=== PATIENT | female | born 1930 | race Caucasian/White ===

== ENCOUNTER 2017-02-16 15:32 | Emergency (ER) | payer OTHER ==
[2017-02-16 16:02] VITALS: BP 123/61; PULSE 77; TEMP 97; BMI 23.4
--- NOTE | 2017-02-16 17:31 | PDOC ---
History of Present Illness - General Chief Complaint: Injury Stated Complaint: FALL Time Seen by Provider: 02/16/17 17:25 History Source: Patient, Family - History of Present Illness Initial Comments: 02/16/17 17:57 86F with pmh of hyperthyroidism and Parkinson's present to the ED after fall from chair that induced a carpet burn and peeled her skin off. Didn't hit her head, no LOC. 02/16/17 18:32 Past History - Past Medical History Allergies/Adverse Reactions: Allergies Allergy/AdvReac Type Severity Reaction Status Date / Time No Known Allergies Allergy Verified 02/16/17 15:59 Home Medications: Ambulatory Orders Carbidopa/Levodopa [Sinemet Cr 50-200 Tablet] 1 each PO 5XD 05/14/11 Quetiapine Fumarate [Seroquel -] 100 mg PO HS 05/14/11 Multivitamins [Tab-A-Vit -] 1 tab PO DAILY 10/06/15 Bacitracin - [Bacitracin Topical Ointment -] 1 applic TP BID #7 applic 02/16/17 Anemia: Yes COPD: No Dementia: Yes (ALZHEIMERS; Parkinsons Dz.) - Surgical History Abdominal Surgery: Yes - Immunization History Immunization Up to Date: Yes - Suicide/Smoking/Psychosocial Hx Smoking Status: No Smoking History: Unknown if ever smoked Have you smoked in the past 12 months: No Number of Cigarettes Smoked Daily: 0 Information on smoking cessation initiated: No Hx Alcohol Use: No Drug/Substance Use Hx: No Substance Use Type: None Review of Systems - Review of Systems Constitutional: No: Symptoms Reported HEENTM: No: Symptoms Reported Respiratory: No: Symptoms reported Cardiac (ROS): No: Symptoms Reported ABD/GI: No: Symptoms Reported Integumentary: Yes: Other (skin torn) Neurological: Yes: Pre-Existing Deficit, Tremors *Physical Exam - Vital Signs Last Vital Signs Temp Pulse Resp BP Pulse Ox 97 F L 77 18 123/61 98 02/16/17 15:32 02/16/17 15:32 02/16/17 15:32 02/16/17 15:32 02/16/17 15:32 - Physical Exam General Appearance: Yes: Nourished, Thin HEENT: positive: EOMI, GAMALIEL Respiratory/Chest: positive: Lungs Clear, Normal Breath Sounds. negative: Chest Tender Cardiovascular: positive: Regular Rhythm, Regular Rate, S1, S2 Integumentary: positive: Other (right hand 5cm patch of skin avulsed, nonbleeding) Neurologic: positive: Other (parkinsonism tremors) Medical Decision Making - Medical Decision Making 02/16/17 19:09 PAtient wound closed with butterflies and kerlex. bacitracin script Ok to discharge *DC/Admit/Observation/Transfer Diagnosis at time of Disposition: Fall - Discharge Dispostion Disposition: HOME Admit: No - Prescriptions Prescriptions: Bacitracin - [Bacitracin Topical Ointment -] 1 applic TP BID #7 applic - Referrals Referrals: Vern Hogan MD [Primary Care Provider] - - Patient Instructions Printed Discharge Instructions: Dermabrasion Additional Instructions: Follow up with your primary care doctor within the next 2-3 days. Keep wound covered with bandage for couple days. Use bacitracin or neosporin on wound daily. Come back to the ER for any new, worsening or concerning symptoms. Print Language: MARTINIQUAIS - Post Discharge Activity
[2017-02-16] MEDS ORDERED: IBUPROFEN 600 MG TABLET (FP) PO ONE (17:57)
[2017-02-16] MEDS ORDERED: BACITRACIN 15 GM TUBE TOPICAL OINTMENT TP ONE (18:38)
--- NOTE | 2017-02-16 19:29 | PDOC ---
Attending Attestation - Resident Resident Name: Onesimo Blackman - ED Attending Attestation I have performed the following: I have examined & evaluated the patient, The case was reviewed & discussed with the resident, I agree w/resident's findings & plan, Exceptions are as noted - HPI HPI: 02/16/17 19:25 86 yo female w Parkinson's reached out from a seated position and slipped on the floor which was covered by a rug.She sustained a avulsed skin wound from her rt wrist head ncat neck no cervical vertebral tenderness lungs no crackles abd nontender ext no acute deformities neuro alert,moving all extremities - Physicial Exam PE: 02/16/17 19:29 Physical exam see above - Medical Decision Making 02/17/17 02:32 IMP avulsive wound/treated with sterri strips and bacitracin
== END 2017-02-16 19:10 | disposition home or self-care (01) ==
LOC: JER 15:32
PROC: 0HQFXZZ Repair Right Hand Skin, External Approach (ICD-10-PCS; principal; 2017-02-16)
DX: S61.411A Laceration without foreign body of right hand, initial encounter (principal); W07.XXXA Fall from chair, initial encounter; Y93.89 Activity, other specified; Y92.038 Other place in apartment as the place of occurrence of the external cause; G30.8 Other Alzheimer's disease; F02.80 Dementia in other diseases classified elsewhere, unspecified severity, without behavioral disturbance, psychotic disturbance, mood disturbance, and anxiety; G20 Parkinson's disease; E05.90 Thyrotoxicosis, unspecified without thyrotoxic crisis or storm
CPT/HCPCS: 12002; 99282-25

== ENCOUNTER 2017-09-05 17:21 | Observation (INO) | payer OTHER ==
--- NOTE | 2017-09-05 18:24 | PDOC ---
Attending Attestation - HPI HPI: The patient is a 87 year old female, with a significant PMH of Parkinson, dementia, and hypothyroid, who presents to the emergency department with an syncopal episode that occurred 1 hour ago upon arrival. The patients home health aide states patient was sitting on the couch when the syncopal episode occurred. Home health aide states attempts were made to wake patient, by calling her name and shaking her, but patient did not arouse for 3 minutes. The patients home health aid reports patient regain consciousness and returned to her baseline. Home health denies patient hitting her head or seizure activity. Denies chest pain, shortness of breath, headache and dizziness. Denies fever, chills, nausea, vomit, diarrhea and constipation. Denies dysuria, frequency, urgency and hematuria. Allergies: NKDA Past surgical history: Laminectomy and hysterectomy Social history: None reported PCP: Ventura Hogan Documentation prepared by Sarah Paige, acting as chief medical technologist for Bette Raygoza MD. - Physicial Exam PE: 09/05/17 21:08 GENERAL Petite stature. Well developed, well nourished. Awake and alert. No acute distress. HEENT: No head trauma. Normocephalic, atraumatic. PERRLA, EOMI. No conjunctival pallor. Sclera are non-icteric. Moist mucous membranes. Oropharynx is clear. NECK: Supple. Full ROM. No JVD. Carotid pulses 2+ and symmetric, without bruits. No thyromegaly. No lymphadenopathy. CARDIOVASCULAR: Regular rate and rhythm. No murmurs, rubs, or gallops. Distal pulses are 2+ and symmetric. PULMONARY: No evidence of respiratory distress. Lungs clear to auscultation bilaterally. No wheezing, rales or rhonchi. ABDOMINAL: Soft. Non-tender. Non-distended. No rebound or guarding. No organomegaly. Normoactive bowel sounds. MUSCULOSKELETAL Normal range of motion at all joints. No bony deformities or tenderness. No CVA tenderness. EXTREMITIES: No cyanosis. No clubbing. No edema. No calf tenderness. SKIN: Warm and dry. Normal capillary refill. No rashes. No jaundice. NEUROLOGICAL: +Alert, awake and moving appropriate but has lower chronic extremity weakness and needs assistance with walking due to parkinson . Cranial nerves 2-12 intact. No deficits to light touch and temperature in face, upper extremities and lower extremities. No motor deficits in the in face, upper extremities and lower extremities. Normoreflexic in the upper and lower extremities. Normal speech. Toes are down-going bilaterally. PSYCHIATRIC: Cooperative. Good eye contact. Appropriate mood and affect. <Sarah Paige - Last Filed: 09/05/17 21:07> - Resident Resident Name: Joi Villagomez - ED Attending Attestation I have performed the following: I have examined & evaluated the patient, The case was reviewed & discussed with the resident, I agree w/resident's findings & plan, Exceptions are as noted - Medical Decision Making 09/06/17 00:32 pt found to have UTI Diag : syncope,UTI admitted <Bette Raygoza - Last Filed: 09/06/17 00:33>
--- NOTE | 2017-09-05 18:29 | PDOC ---
History of Present Illness - History of Present Illness Initial Comments: 87yo F with PMH of Parkinson's Disease and hypothyroid presenting with syncopal episode about one hour prior to arrival. History was difficult to elicit due to patient's dementia. Patient was sitting on the couch when she suddenly syncopized, an incident witnessed by her home health aid. Attempts were made to arouse the patient, by calling her name and shaking her, but she was out for about three minutes. Patient immediately regained consciousness and returned to her baseline. Denies urinary or fecal incontinence during/after the episode, no tongue biting. Home health aid denies witnessing any seizure-like activity. Denies headache, blurry vision, shortness of breath, chest pain, n/v/d. 09/05/17 18:34 <Joi Villagomez - Last Filed: 09/05/17 18:42> <Bette Raygoza - Last Filed: 09/05/17 21:13> - General Chief Complaint: Syncope/Near Syncope Stated Complaint: LOST CONCIOUSNESS Time Seen by Provider: 09/05/17 18:05 Past History - Past Medical History Anemia: Yes COPD: No Dementia: Yes (ALZHEIMERS; Parkinsons Dz.) - Surgical History Abdominal Surgery: Yes - Immunization History Immunization Up to Date: Yes - Suicide/Smoking/Psychosocial Hx Smoking Status: No Smoking History: Unknown if ever smoked Have you smoked in the past 12 months: No Number of Cigarettes Smoked Daily: 0 Hx Alcohol Use: No Drug/Substance Use Hx: No Substance Use Type: None <Joi Villagomez - Last Filed: 09/05/17 18:42> <Bette Raygoza - Last Filed: 09/05/17 21:13> - Past Medical History Allergies/Adverse Reactions: Allergies Allergy/AdvReac Type Severity Reaction Status Date / Time No Known Allergies Allergy Verified 02/16/17 15:59 Home Medications: Ambulatory Orders Carbidopa/Levodopa [Sinemet Cr 50-200 Tablet] 1 each PO Q6H 05/14/11 Quetiapine Fumarate [Seroquel -] 100 mg PO HS 05/14/11 Multivitamins [Tab-A-Vit -] 1 tab PO DAILY 10/06/15 Review of Systems - Review of Systems Comments:: Constitutional: no fever, no chills HEENT: no throat pain, no hemoptysis Cardiovascular: no chest pain, no palpitations Respiratory: no cough, no shortness of breath Gastrointestinal: no abdominal pain, no nausea, no vomiting Genitourinary: no dysuria, no frequency Musculoskeletal: no myalgia, no arthralgia Skin: no rash, no itching Neurologic: no headache, no dizziness <Joi Villagomez - Last Filed: 09/05/17 18:42> *Physical Exam - Vital Signs Last Vital Signs Temp Pulse Resp BP Pulse Ox 97.8 F 66 20 134/69 100 09/05/17 17:35 09/05/17 17:35 09/05/17 17:35 09/05/17 17:35 09/05/17 17:35 - Physical Exam Comments: General: Awake, alert, and fully oriented, in no acute distress Head: no signs of trauma Eyes: PERRL, EOMI, sclera anicteric ENT: moist mucus membranes, Neck: Normal ROM, supple, no lymphadenopathy, JVD, or masses Lungs: Lungs clear, Normal breath sounds Cardio: Regular rhythm, S1 and S2 present, no murmurs, rubs, or gallops Abdomen: Soft, nontender, normal bowel sounds. No guarding, no rebound, no masses Extremities: Normal range of motion, Distal pulses present in all extremities SKIN: Warm, Dry, normal turgor, no rashes or lesions noted Neurologic: Generalized weakness, Cranial nerves II through XII grossly intact. Follows commands <Joi Villagomez - Last Filed: 09/05/17 18:42> - Vital Signs Last Vital Signs Temp Pulse Resp BP Pulse Ox 97.8 F 75 18 141/73 100 09/05/17 17:35 09/05/17 20:31 09/05/17 20:31 09/05/17 20:31 09/05/17 20:31 <Bette Raygoza - Last Filed: 09/05/17 21:13> ED Treatment Course - LABORATORY CBC & Chemistry Diagram: 09/05/17 18:41 09/05/17 18:41 - ADDITIONAL ORDERS Additional order review: Laboratory Results 09/05/17 09/05/17 09/05/17 20:09 18:52 18:41 PT with INR 11.90 INR 1.05 Sodium 143 Potassium 4.1 Chloride 107 Carbon Dioxide 28 Anion Gap 8 BUN 18 Creatinine 0.7 Creat Clearance w eGFR > 60 Random Glucose 127 H Calcium 8.9 Total Bilirubin 0.6 AST 14 L ALT 7 L Alkaline Phosphatase 62 Creatine Kinase 39 Troponin I < 0.02 Total Protein 6.9 Albumin 3.3 L TSH 0.86 Urine Color Yellow Urine Appearance Slcloudy Urine pH 6.0 Ur Specific [place] 1.017 Urine Protein Negative Urine Glucose (UA) Negative Urine Ketones Trace H Urine Blood 1+ H Urine Nitrite Positive Urine Bilirubin Negative Urine Urobilinogen Negative Ur Leukocyte Esterase 2+ H Urine WBC (Auto) 27 Urine RBC (Auto) 5 Urine Bacteria Rare Urine Mucus Rare 09/05/17 18:41 RBC 3.91 MCV 88.2 MCHC 33.4 RDW 13.3 MPV 7.5 Neutrophils % 62.3 D Lymphocytes % 25.7 D Monocytes % 8.8 Eosinophils % 2.6 Basophils % 0.6 <Bette Raygoza - Last Filed: 09/05/17 21:13> Medical Decision Making - Medical Decision Making 87yo patient with syncopal episode. Ordered EKG, portable CXR, CBC, CMP, TSH, Head CT w/o contrast. Patient is alert and oriented, in no acute distress. Follows commands. Syncope differential: Cardiac vs. Neurovascular vs. Electrolyte disturbance vs. Hypovolemia. <Joi Villagomez - Last Filed: 09/05/17 18:42> *DC/Admit/Observation/Transfer <Joi Villagomez - Last Filed: 09/05/17 18:42> - Discharge Dispostion Decision to Admit order: Yes <Bette Raygoza - Last Filed: 09/05/17 21:13> Diagnosis at time of Disposition: UTI (urinary tract infection) Qualifiers: Urinary tract infection type: site unspecified Hematuria presence: without hematuria Qualified Code(s): N39.0 - Urinary tract infection, site not specified Syncope Qualifiers: Syncope type: unspecified Qualified Code(s): R55 - Syncope and collapse - Referrals Referrals: Vern Hogan MD [Primary Care Provider] - - Patient Instructions - Post Discharge Activity
[2017-09-05 19:03] LABS: BASO % 0.6 % (0-2.0); EOS % 2.6 % (0-4.5); HEMATOCRIT 34.5 % (32.4-45.2); HEMOGLOBIN 11.5 GM/dL (10.7-15.3); LYMPH % 25.7 % (8-40); MCH 29.5 pg (25.7-33.7); MCHC 33.4 g/dl (32.0-36.0); MEAN CELL VOLUME 88.2 fl (80-96); MEAN PLT VOLUME 7.5 fl (7.5-11.1); MONO % 8.8 % (3.8-10.2); NEUT % 62.3 % (42.8-82.8); PLATELET COUNT 258 K/MM3 (134-434); RBC 3.91 M/mm3 (3.60-5.2); RDW 13.3 % (11.6-15.6); WHITE BLOOD COUNT 5.1 K/mm3 (4.0-10.0)
--- NOTE | 2017-09-05 19:12 | PDOC ---
*Physical Exam - Vital Signs Last Vital Signs Temp Pulse Resp BP Pulse Ox 97.8 F 66 20 134/69 100 09/05/17 17:35 09/05/17 17:35 09/05/17 17:35 09/05/17 17:35 09/05/17 17:35 ED Treatment Course - LABORATORY CBC & Chemistry Diagram: 09/05/17 18:41 09/05/17 18:41 - ADDITIONAL ORDERS Additional order review: 09/05/17 18:41 RBC 3.91 MCV 88.2 MCHC 33.4 RDW 13.3 MPV 7.5 Neutrophils % 62.3 D Lymphocytes % 25.7 D Monocytes % 8.8 Eosinophils % 2.6 Basophils % 0.6 Medical Decision Making - Medical Decision Making Signed out by Dr. Villagomez. Pt currently at CT scan. Blood glucose per EMS was 117. Awaiting lab work and CT results. ECG showed normal sinus rhythm. 09/05/17 19:08 CT scan negative for bleeds. UA showed UTI (positive leuk esterase and nitrites) , started 1g ceftriaxone, as well as home medications for PD (sinemet and seroquel). ECG and troponin negative, but we cannot find underlying reason for syncopal episode. Will be admitted for tele/obs to r/o any cardiac abnormalities. Internal Medicine resident at bedside with pt. Pt is sleeping comfortably. 09/05/17 22:15 Pt provided home medications to assist with sleep (sinemet and seroquel). Pt comfortable and awaiting bed upstairs. Discussed with IM internal medicine doctor. 09/05/17 23:11 *DC/Admit/Observation/Transfer Diagnosis at time of Disposition: UTI (urinary tract infection) Qualifiers: Urinary tract infection type: site unspecified Hematuria presence: without hematuria Qualified Code(s): N39.0 - Urinary tract infection, site not specified Syncope Qualifiers: Syncope type: unspecified Qualified Code(s): R55 - Syncope and collapse - Referrals - Patient Instructions - Post Discharge Activity
[2017-09-05 19:15] LABS: INR 1.05 (0.82-1.09); PROTHROMBIN TIME (PATIENT) 11.9 SEC (9.7-13.0)
[2017-09-05 19:25] LABS: ALBUMIN 3.3 g/dl (3.4-5.0); ANION GAP 8 (8-16); BILIRUBIN,TOTAL 0.6 mg/dL (0.2-1.0); CALCIUM 8.9 mg/dL (8.5-10.1); CHLORIDE 107 mmol/L (98-107); CO2 28 mmol/L (21-32); CREATININE 0.7 mg/dL (0.55-1.02); GLUCOSE,RANDOM 127 mg/dL (74-106); POTASSIUM 4.1 mmol/L (3.5-5.1); SGOT/AST 14 U/L (15-37); SGPT/ALT 7 U/L (12-78); SODIUM 143 mmol/L (136-145); TOT PROT 6.9 g/dl (6.4-8.2)
[2017-09-05 19:34] LABS: ALK PHOS 62 U/L (45-117); BLOOD UREA NITROGEN 18 mg/dL (7-18)
[2017-09-05 20:18] LABS: URINE APPEARANCE SLCLOUDY; URINE BILIRUBIN NEGATIVE (<2.0 mg/dL); URINE COLOR YELLOW; URINE GLUCOSE (UA) NEGATIVE (NEGATIVE); URINE KETONE TRACE (NEGATIVE); URINE NITRITE POSITIVE (NEGATIVE); URINE PROTEIN NEGATIVE (NEGATIVE); URINE UROBILINOGEN NEGATIVE mg/dL (0.2-1.0)
[2017-09-05 20:26] LABS: URINE LEUK ESTERASE 2+ (NEGATIVE)
[2017-09-05 20:27] LABS: URINE BACTERIA RARE /hpf (NONE SEEN); URINE MUCUS RARE
[2017-09-05] MEDS ORDERED: CEFTRIAXONE 1,000 MG in DEXTROSE 5%-WATER - 50 ML IVPB ONE (20:59)
[2017-09-05] MEDS ORDERED: CEFTRIAXONE 1 GM/50 ML BAG ONE (21:15)
[2017-09-05] MEDS ORDERED: QUEtiapine FUMARATE 100 MG TABLET (FP) PO ONE (21:37)
[2017-09-05] MEDS ORDERED: CARBIDOPA/LEVODOPA 25/100 TABLET (FP) ONE (22:07)
[2017-09-05] MEDS ORDERED: QUEtiapine FUMARATE 100 MG TABLET (FP) ONE (22:07)
[2017-09-05] MEDS ORDERED: SODIUM CHLORIDE 1,000 ML IV SCH (22:45)
[2017-09-05] MEDS ORDERED: HEPARIN NA (PORCINE) 5,000 UNITS/ML 1ML VIAL ONE (22:47)
[2017-09-05] MEDS: HEPARIN NA (PORCINE) 5,000 UNITS/ML 1ML VIAL SQ SCH (22:50)
--- NOTE | 2017-09-05 22:59 | HP ---
CHIEF COMPLAINT: syncopal episode PCP: HISTORY OF PRESENT ILLNESS: 87 y/o female with PMH parkinson's, dementia, hyperthyroidism, and falls, presents after a syncopal episode. As per daughter at bedside, this occurred around 4PM as she was sitting in armchair. She was to be moved to wheelchair to go outside, when she was syncopized into armchair. Denies prior syncopal episodes. No trauma to head. Denies incontinence, tongue biting, tremors, posit ictal confusion. Patient was unresponsive for 2 minutes, when she spontanously returned to her baseline. Minimally responsive at baseline. Ambulates with assistance in wheelchair. Was last able to walk with walker 1 year ago. Denies fevers, chills, shortness of breath, chest pain, palpitations, nausea, vomiting , diarrhea, [place] stools, hematochezia, hematuria, dysuria, urinary frequency. ER course was notable for: (1) Rocephin (2) CXR, EKG, CT head, UA, urine cultures (3) Recent Travel: PAST MEDICAL HISTORY: parkinson's, dementia, hyperthyroidism, falls PAST SURGICAL HISTORY: Social History: Smoking: denies Alcohol: denies Drugs: denies Family History: Allergies No Known Allergies Allergy (Verified 02/16/17 15:59) HOME MEDICATIONS: Home Medications Medication Instructions Recorded Carbidopa/Levodopa [Sinemet Cr 1 each PO Q6H 05/14/11 50-200 Tablet] Quetiapine Fumarate [Seroquel -] 100 mg PO HS 05/14/11 Multivitamins [Tab-A-Vit -] 1 tab PO DAILY 10/06/15 REVIEW OF SYSTEMS As per HPI PHYSICAL EXAMINATION Vital Signs - 24 hr 09/05/17 09/05/17 17:35 20:31 Temperature 97.8 F Pulse Rate 66 Pulse Rate [ 75 Left Radial] Respiratory 20 18 Rate Blood Pressure 134/69 Blood Pressure 141/73 [Right Arm] O2 Sat by Pulse 100 100 Oximetry (%) GENERAL: Awake, resting supine, in no acute distress. HEAD: Normal with no signs of trauma. EYES: Pupils equal, round and reactive to light, extraocular movements intact, sclera anicteric. EARS, NOSE, THROAT: Oropharynx clear without exudates. Dry mucous membranes. NECK: Supple without lymphadenopathy, JVD, or masses. LUNGS: Poor inspiratory effort. Breath sounds equal, clear to auscultation bilaterally. No wheezes, and no crackles. HEART: Regular rate and rhythm, normal S1 and S2 without murmur, rub or gallop. ABDOMEN: Soft, nontender, not distended, normoactive bowel sounds, no guarding, no rebound, no masses. No hepatomegaly or splenomegaly. MUSCULOSKELETAL: Normal range of motion at all joints. No bony deformities or tenderness. No CVA tenderness. EXTREMITIES: 2+ pulses, warm, well-perfused. No peripheral edema. SKIN: Warm, dry, normal turgor, no rashes or lesions noted, normal capillary refill. Laboratory Results - last 24 hr 09/05/17 09/05/17 09/05/17 18:41 18:41 18:52 WBC 5.1 RBC 3.91 Hgb 11.5 Hct 34.5 MCV 88.2 MCH 29.5 MCHC 33.4 RDW 13.3 Plt Count 258 MPV 7.5 Absolute Neuts (auto) 3.2 Neutrophils % 62.3 D Lymphocytes % 25.7 D Monocytes % 8.8 Eosinophils % 2.6 Basophils % 0.6 Nucleated RBC % 0 PT with INR 11.90 INR 1.05 Sodium 143 Potassium 4.1 Chloride 107 Carbon Dioxide 28 Anion Gap 8 BUN 18 Creatinine 0.7 Creat Clearance w eGFR > 60 Random Glucose 127 H Calcium 8.9 Total Bilirubin 0.6 AST 14 L ALT 7 L Alkaline Phosphatase 62 Creatine Kinase 39 Troponin I < 0.02 Total Protein 6.9 Albumin 3.3 L TSH 0.86 Urine Color Urine Appearance Urine pH Ur Specific [place] Urine Protein Urine Glucose (UA) Urine Ketones Urine Blood Urine Nitrite Urine Bilirubin Urine Urobilinogen Ur Leukocyte Esterase Urine WBC (Auto) Urine RBC (Auto) Urine Bacteria Urine Mucus 09/05/17 20:09 WBC RBC Hgb Hct MCV MCH MCHC RDW Plt Count MPV Absolute Neuts (auto) Neutrophils % Lymphocytes % Monocytes % Eosinophils % Basophils % Nucleated RBC % PT with INR INR Sodium Potassium Chloride Carbon Dioxide Anion Gap BUN Creatinine Creat Clearance w eGFR Random Glucose Calcium Total Bilirubin AST ALT Alkaline Phosphatase Creatine Kinase Troponin I Total Protein Albumin TSH Urine Color Yellow Urine Appearance Slcloudy Urine pH 6.0 Ur Specific [place] 1.017 Urine Protein Negative Urine Glucose (UA) Negative Urine Ketones Trace H Urine Blood 1+ H Urine Nitrite Positive Urine Bilirubin Negative Urine Urobilinogen Negative Ur Leukocyte Esterase 2+ H Urine WBC (Auto) 27 Urine RBC (Auto) 5 Urine Bacteria Rare Urine Mucus Rare ASSESSMENT/PLAN: 87 y/o female with PMH parkinson's, dementia, hyperthyroidism, and falls, presents after a syncopal episode. Syncopal episode -Likely autonomic dysfunction d/t history of parkinsons -EKG showed normal sinus rhythm at 66bpm -CT head showed no acute intracranial bleeding or pathology -Telemetry monitoring -Cardiac echo- consider cardiology consultation pending results -Neurology consult- Dr. Keller -Fall precautions -Gentle hydration IVNS 50ml/hr Asymptomatic UTI -UA showed: +nitrites, 1+ blood, 2+ leukocyte esterase, 27 WBC, 5 RBC -Urine culture pending. Follow culture results. -Rocephin given in ED -no treatment for asymptomatic uti at this time Parkinson's -Reinstate sinemet -Reinstate Seroguel Constipation -Senna PRN Prophylaxis -Heparin 5000u subq TID FEN -IV NS 50ml/hr -Electrolytes WNL -Puree diet Disposition: Telemetry observation Advanced directives: Patient's daughter who is health care proxy does not want chest compressions, intubation done for patient. She will bring her proof of health care proxy tomorrow. Case discussed with cotton dispatcher attending. Visit type - Emergency Visit Emergency Visit: Yes ED Registration Date: 09/05/17 Care time: The patient presented to the Emergency Department on the above date and was hospitalized for further evaluation of their emergent condition. - New Patient This patient is new to me today: Yes Date on this admission: 09/06/17 - Critical Care Critical Care patient: No Hospitalist Screening - Colonoscopy Questionnaire Colonoscopy Questionnaire: Colonoscopy Questionnaire - Patient: 50 - 75 years old and never had a screening colonoscopy: Unknown History of colon or rectal polyps, or CA: Unknown History of IBD, Crohn's disease or UC: Unknown History of abdominal radiation therapy as a child: Unknown - Relative: 1 with colon or rectal CA, or polyps at age 60 or younger: Unknown Colon or rectal CA diagnosed at age 45 or younger: Unknown Multiple relatives with colon or rectal CA: Unknown - Outcome: Screening Result: Negative Screen
--- NOTE | 2017-09-06 04:45 | PN ---
Teaching Attending Note Name of Resident: Michael Myers ATTENDING PHYSICIAN STATEMENT I saw and evaluated the patient. I reviewed the resident's note and discussed the case with the resident. I agree with the resident's findings and plan as documented. SUBJECTIVE: OBJECTIVE: ASSESSMENT AND PLAN: this is an 87 y/o female presented afte the patient passed out while getting out of the wheelchair, patient has a PMH of parkinsons, and moderate cognitive impairment patient is clinically dry on physical exam plan: admit to tele for monitoring to evaluate the patient cause of her syncope - possible 2/2 orthostatic changes vs neurocardiogenic syncope 2/2 parkinson vs drug realated consult cardiology consult neurology obtain echo to r/o organic causes of her syncope IVF hydration
[2017-09-06] MEDS ORDERED: HEPARIN NA (PORCINE) 5,000 UNITS/ML 1ML VIAL ONE (06:32)
[2017-09-06] MEDS: HEPARIN NA (PORCINE) 5,000 UNITS/ML 1ML VIAL SQ SCH ×3 (06:34→21:36)
[2017-09-06 08:14] LABS: HEMATOCRIT 34.6 % (32.4-45.2); HEMOGLOBIN 11.7 GM/dL (10.7-15.3); MCH 29.8 pg (25.7-33.7); MCHC 33.7 g/dl (32.0-36.0); MEAN CELL VOLUME 88.6 fl (80-96); MEAN PLT VOLUME 7.7 fl (7.5-11.1); PLATELET COUNT 250 K/MM3 (134-434); RBC 3.91 M/mm3 (3.60-5.2); RDW 13.4 % (11.6-15.6); WHITE BLOOD COUNT 5.2 K/mm3 (4.0-10.0)
[2017-09-06 08:28] LABS: CALCIUM 8.4 mg/dL (8.5-10.1); CHLORIDE 108 mmol/L (98-107); POTASSIUM 3.7 mmol/L (3.5-5.1); SODIUM 142 mmol/L (136-145)
[2017-09-06 08:32] LABS: ANION GAP 6 (8-16); BLOOD UREA NITROGEN 12 mg/dL (7-18); CO2 28 mmol/L (21-32); CREATININE 0.6 mg/dL (0.55-1.02); GLUCOSE,RANDOM 86 mg/dL (74-106); PHOSPHOROUS 2.5 mg/dL (2.5-4.9)
--- NOTE | 2017-09-06 10:14 | EKG ---
Test Reason : Blood Pressure : / mmHG Vent. Rate : 066 BPM Atrial Rate : 066 BPM P-R Int : 156 ms QRS Dur : 078 ms QT Int : 406 ms P-R-T Axes : 061 019 045 degrees QTc Int : 425 ms NORMAL SINUS RHYTHM NORMAL ECG WHEN COMPARED WITH ECG OF 02-APR-2015 18:23, NO SIGNIFICANT CHANGE WAS FOUND Confirmed by DORINA LAWRENCE MD ([id number]) on 09/06/2017 10:14:12 AM Referred By: Confirmed By:DORINA LAWRENCE MD
[2017-09-06] MEDS: MULTIVITAMINS (DAILY MVI) TABLET (FP) PO SCH (12:54)
--- NOTE | 2017-09-06 14:57 | ECHO ---
Name: LEIDY CHAN Exam:Adult Echocardiogram Study Date: 09/06/2017 08:59 AM Age: 87 yrs Reason For Study: SYNCOPE Height: 52 in Weight: 85 lb BSA: 1.2 m2 MMode/2D Measurements & Calculations IVSd: 0.66 cm Ao root diam: 3.1 cm LVIDd: 3.2 cm LA dimension: 3.2 cm LVIDs: 2.3 cm ACS: 1.2 cm LVPWd: 0.56 cm IVSs: 0.86 cm LVPWs: 0.75 cm EDV(Teich): 42.1 ml ESV(Teich): 18.0 ml Doppler Measurements & Calculations MV E max shane: 71.4 cm/sec Ao V2 max: 136.8 cm/sec MV A max shane: 94.9 cm/sec Ao max P.5 mmHg MV E/A: 0.75 Ao V2 mean: 94.4 cm/sec Ao mean P.0 mmHg Ao V2 VTI: 29.9 cm MR max shane: 474.9 cm/sec PI end-d shane: 56.5 cm/sec MR max P.5 mmHg Med Peak E' Shane: 6.1 cm/sec Med E/e': 11.6 Lat Peak E' Shane: 9.3 cm/sec Lat E/e': 7.7 Procedure Technically limited study. A limited two-dimensional transthoracic echocardiogram was performed (2D). Left Ventricle The left ventricle is normal in size. Left ventricular systolic function is normal. Ejection Fraction = 60- 65%. E/A reversal with TDI medial E/E' of 12 suggests impaired relaxation with normal filling pressur e. No regional wall motion abnormalities noted. Right Ventricle The right ventricle is normal size. The right ventricular systolic function is normal. Atria The left atrial size is normal. Right atrial size is normal. Mitral Valve The mitral valve is normal in structure and function. There is mild mitral regurgitation. Tricuspid Valve The tricuspid valve is normal in structure and function. No tricuspid regurgitation. Aortic Valve There is mild aortic sclerosis.;. The aortic valve is trileaflet. The aortic valve opens well. No aor tic regurgitation is present. Pulmonic Valve The pulmonic valve is not well visualized. Mild pulmonic valvular regurgitation. Great Vessels The aortic root is normal size. Pericardium/Pleura There is no pericardial effusion. Interpretation Summary The left ventricle is normal in size. Left ventricular systolic function is normal. No regional wall motion abnormalities noted. Ejection Fraction = 60-65%. E/A reversal with TDI medial E/E' of 12 suggests impaired relaxation with normal filling pressure The right ventricular systolic function is normal. The left atrial size is normal. Right atrial size is normal. There is mild mitral regurgitation. There is mild aortic sclerosis.; Mild pulmonic valvular regurgitation. There is no pericardial effusion. Previous study is not available for comparison Tommy Senior MD 09/06/2017 02:56 PM
--- NOTE | 2017-09-06 16:58 | PN ---
Teaching Attending Note Name of Resident: Josh Meraz ATTENDING PHYSICIAN STATEMENT I saw and evaluated the patient. I reviewed the resident's note and discussed the case with the resident. I agree with the resident's findings and plan as documented. SUBJECTIVE:resting comfortable. as per family she has had no symptoms. denies CP , SOB, fever, chills, dysuria and urinary frequency. reports she has had decreased po intake recently, no recent changes to medication. as per family she at baseline mental status. that she has periods of decreased responsiveness but is alert and able to communicate needs. forgetful. bedbound OBJECTIVE: Last Vital Signs Temp Pulse Resp BP Pulse Ox 98.3 F 76 17 121/65 97 09/06/17 14:09/06/17 14:00 09/06/17 14:09/06/17 14:09/06/17 14:00 General NAD, resting comfortable. withdraws to painful stimuli, does not respond to or follows commands CV S1 S2 RRR no murmur/rub/gallop no carotid bruit Lungs CTA anteriorly Abdomen soft NT/ND no suprapubic distention/tenderness Extremities no pedal edema ASSESSMENT AND PLAN: 87yo F wtih PMH Parkinson, dementia and hyperthroid presented to the ER after syncopal episodes where she slumped over in the chair and was unresponsice 1. Syncope- high suspicion for autonomic dysfunction due to Parkinsons although can not r/o dehydration. check orthostatics. echo and carotid doppler pending. 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 neuro consulted will await to see if any further workup indicated or if requires medication adjustment as sinemet can cause syncope. however been stable on this dose for a year. head CT with no acute pathology 2. asymptomatic bacteriauria- received ceftriaxone in the ER. would hold further abx at this time as not symptomatic 3. parkinsons- cont medicaiton 4. Hyperthyroid- TSH WNL. cont meds 5. DVT ppx- SCD 6. spoke with family present at bedside. all questions answered. explained for likely d/c in the AM
--- NOTE | 2017-09-06 20:53 | PN ---
Physical Exam: SUBJECTIVE: Patient seen and examined this morning in the ER. She is primarily mexican speaking and complains of LUQ abdominal pain. Denies nausea, vomiting, diarrhea, constipation, dysuria. OBJECTIVE: Vital Signs Period Temp Pulse Resp BP Sys/Estrella Pulse Ox Last 24 Hr 98.3 F-98.5 F 69-86 17-18 100-139/51-73 97-97 GENERAL: AOx1, in no acute distress. NECK: No carotid bruit LUNGS: Breath sounds equal, clear to auscultation bilaterally, no wheezes, no crackles HEART: Regular rate and rhythm, S1, S2 without murmur, rub or gallop. ABDOMEN: Soft, nontender, nondistended, normoactive bowel sounds EXTREMITIES: 2+ pulses, no edema Laboratory Results - last 24 hr 09/06/17 09/06/17 07:45 07:45 WBC 5.2 RBC 3.91 Hgb 11.7 Hct 34.6 MCV 88.6 MCH 29.8 MCHC 33.7 RDW 13.4 Plt Count 250 MPV 7.7 Sodium 142 Potassium 3.7 Chloride 108 H Carbon Dioxide 28 Anion Gap 6 L BUN 12 Creatinine 0.6 Creat Clearance w eGFR > 60 Random Glucose 86 Calcium 8.4 L Phosphorus 2.5 Magnesium 2.0 Active Medications Carbidopa/Levodopa (Sinemet *Cr* 50/200 -) 1 combo PO Q6HPO [facility] Last Admin: 09/06/17 19:13 Dose: 1 combo Heparin Sodium (Porcine) (Heparin -) 5,000 unit SQ TID [facility] Last Admin: 09/06/17 14:55 Dose: 5,000 unit Sodium Chloride (Normal Saline -) 1,000 mls @ 50 mls/hr IV ASDIR [facility] Stop: 09/06/17 22:42 Last Admin: 09/05/17 23:06 Dose: 50 mls/hr Multivitamins/Minerals/Vitamin C (Tab-A-Vit -) 1 tab PO DAILY [facility] Last Admin: 09/06/17 12:54 Dose: 1 tab Quetiapine Fumarate (Seroquel -) 100 mg PO HS [facility] Senna (Senna -) 1 tab PO HS [facility] IMAGING: - CXR: No acute chest pathology - Head CT: No evidence of acute intracranial hemorrhage, edema, midline shift, mass effect, or skull fracture. No CT evidence of acute territorial infarction. 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 - EKG: NORMAL SINUS RHYTHM, NORMAL ECG - ECHO: EF 60-65%, LV and RV systolic function is normal, Mild MR, Mild , Mild Pulmonic valve regurgitation, No pericardial effusion ASSESSMENT/PLAN: 87 y/o female with PMH parkinson's, dementia, hyperthyroidism, and falls, presents after a syncopal episode. 1. Syncope - Likely due to autonomic dysfunction given history of Parkinsons - Consider Dehydration, Orthostatics--Sitting 118/59, Standing 100/51 - EKG, CT Head, Echo Reviewed - Carotid doppler ordered - Neurology (Dr. Keller) consult pending 2. Asymptomatic UTI - UA: + nitrites, 2+ leukocyte esterase, 27 WBC - Urine culture pending - 1 dose Rocephin given in ED - No further treatment indicated 3. Parkinsons - Continue Sinemet 50/200 1 combo PO Q6HPO - Continue Seroquel 100 mg PO HS 4. Constipation - Continue Senna 1 tab PO HS 5. FEN - Continue Normal Saline @ 50 mls/hr IV - Lytes WNL - Puree diet 6. PPx - DVT: Heparin TID Visit type - Emergency Visit Emergency Visit: Yes ED Registration Date: 09/05/17 Care time: The patient presented to the Emergency Department on the above date and was hospitalized for further evaluation of their emergent condition. - New Patient This patient is new to me today: Yes Date on this admission: 09/06/17 - Critical Care Critical Care patient: No
[2017-09-06 21:00] VITALS: BMI 21.8
[2017-09-06] MEDS ORDERED: QUEtiapine FUMARATE 50 MG TABLET ONE (21:27)
--- NOTE | 2017-09-06 21:28 | CONSULT ---
Consult - text type - Consultation Consultation Note: NEUROLOGY CONSULTATION is greatly appreciated: Events reviewed and discussed with Patient's daughter and home health aide at the bedside. This 87 yo RH woman with h/o Hypothyroidism is well-known to me over many years with Parkinson's disease and dementia. Maintained on Sinemet CR 50/200 QID and seroquel 50 q AM and 100mg qHS for sleep and agitation. The L-Dopa allows her to walk and transfer with assistance. Yesterday had brief, witnessed LOC while being transferred to her wheelchair " to go out." In ER: BP's show orthostatic effects (ie: 120/60 sitting and 100/50 standing) U/A= 27 WBC (now on ceftriaxone). CT of head (reviewed): Moderately severe, diffuse, atrophy without focal or traumatic changes. TRIPP: Frail. No bruits. Neck supple. Cor reg. NEURO: Friendly and cooperative. Sparse gibberish speech. Follows occ simple commands. + glabella, snout, suck, root and symmetrical grasps. Increased tone with cogwheel rigidity but no focal weakness. Withdraws all 4's briskly to pinch. IMP: Moderately severe, B/L cerebral dysfunction (OMS/Chronic) with persistent Parkinsonian features. Worsened by toxic-metabolic encephalopathy (UTI). SUGGEST: Continue antibiotics and hydration. Continue sinemet CR 50/200 TID @ 7, 12, and 5. Follow orthostatic BPs Cardiac eval as directed. Thank you very much, Iraj Keller MD
[2017-09-06] MEDS ORDERED: QUEtiapine FUMARATE 100 MG TABLET (FP) PO SCH (22:00)
[2017-09-06] MEDS ORDERED: SENNOSIDES 8.6MG TABLET (FP) PO SCH (22:00)
[2017-09-07] MEDS: HEPARIN NA (PORCINE) 5,000 UNITS/ML 1ML VIAL SQ SCH ×2 (06:23→14:06)
[2017-09-07] MEDS: MULTIVITAMINS (DAILY MVI) TABLET (FP) PO SCH (09:33)
[2017-09-07] MEDS ORDERED: PT OWN MED DRAWER 7, Y5N ONE (11:43)
--- NOTE | 2017-09-07 14:11 | PN ---
Teaching Attending Note Name of Resident: Paty Vanegas ATTENDING PHYSICIAN STATEMENT I saw and evaluated the patient. I reviewed the resident's note and discussed the case with the resident. I agree with the resident's findings and plan as documented with exceptions below. SUBJECTIVE: Patient seen and examined, no complaints,no dizziness, daughter at bedside, assisting in communication. OBJECTIVE: Vital Signs Period Temp Pulse Resp BP Sys/Estrella Pulse Ox Last 24 Hr 97.5 F-98.2 F 64-74 18-20 135-146/68-90 98-98 Intake & Output 09/04/17 09/05/17 09/06/17 09/07/17 23:59 23:59 23:59 23:59 Intake Total 150 525 Balance 150 525 Weight 85 lb 84 lb General: lying in bed in no acute distress Chest: decreased effort, no rales or wheezing Abdomen:soft, NT, ND, positive bowel sounds Extremities : no edema Neuro: awake, oriented to self and family, responding to questions appropriately Active Medications Carbidopa/Levodopa (Sinemet *Cr* 50/200 -) 1 combo PO Q6HPO [facility] Last Admin: 09/07/17 11:48 Dose: 1 combo Heparin Sodium (Porcine) (Heparin -) 5,000 unit SQ TID [facility] Last Admin: 09/07/17 14:06 Dose: Not Given Multivitamins/Minerals/Vitamin C (Tab-A-Vit -) 1 tab PO DAILY [facility] Last Admin: 09/07/17 09:33 Dose: 1 tab Quetiapine Fumarate (Seroquel -) 100 mg PO HS [facility] Last Admin: 09/06/17 21:37 Dose: 100 mg Senna (Senna -) 1 tab PO HS [facility] Last Admin: 09/06/17 21:36 Dose: 1 tab Microbiology 09/05/17 20:09 Urine - Urine Clean Catch Urine Culture - Preliminary Lactose Fermenting Neg Bacilli 2D echo results noted ASSESSMENT AND PLAN: 87yo F wtih PMH Parkinson, dementia and hyperthroid presented to the ER after syncopal episodes where she slumped over in the chair and was unresponsive -Syncope, positive orthostatics here, suspect orthostasis from hypovolumia/ autonomic dysfunction from Parkinson's disease, presentation and findings not suspicious for cardiac or neurological event -Asymptomatic bacteruria vs lower uncomplicated UTI -Parkinson's disease -Hyperthyroidism Plan: no further events. s/p IV hydration. family at bedside advised to maintain adequate hydration and avoid sudden postural changes. 2D echo noted. Neurology input appreciated. Continue sinemet and outpatient follow up. Urine cultures noted, patient not reliable historian for symptoms. Start ceftin 250 mg BID for 5 days. Continue seroquel. Dispo d/c home with services. Plan discussed with family at bedside in detail, all questions answered.
[2017-09-07 14:17] VITALS: BP 124/83; PULSE 84; TEMP 97.5
--- NOTE | 2017-09-07 15:40 | DS ---
Physical Exam: SUBJECTIVE: Patient seen and examined this morning. Denies any BM's since yesterday. No overnight events as per nursing. Denies fevers, chills, chest pain, SOB. OBJECTIVE: Vital Signs Period Temp Pulse Resp BP Sys/Estrella Pulse Ox Last 24 Hr 97.5 F-98.2 F 64-84 18-20 124-146/68-90 98-98 PHYSICAL EXAM GENERAL: AOx1, in no acute distress. NECK: No carotid bruit LUNGS: Breath sounds equal, clear to auscultation bilaterally, no wheezes, no crackles HEART: Regular rate and rhythm, S1, S2 without murmur, rub or gallop. ABDOMEN: Soft, nontender, nondistended, normoactive bowel sounds EXTREMITIES: 2+ pulses, no edema Laboratory Tests 09/05/17 09/05/17 09/05/17 18:41 18:41 18:52 WBC 5.1 RBC 3.91 Hgb 11.5 Hct 34.5 MCV 88.2 MCH 29.5 MCHC 33.4 RDW 13.3 Plt Count 258 MPV 7.5 Absolute Neuts (auto) 3.2 Neutrophils % 62.3 D Lymphocytes % 25.7 D Monocytes % 8.8 Eosinophils % 2.6 Basophils % 0.6 Nucleated RBC % 0 PT with INR 11.90 INR 1.05 Sodium 143 Potassium 4.1 Chloride 107 Carbon Dioxide 28 Anion Gap 8 BUN 18 Creatinine 0.7 Creat Clearance w eGFR > 60 Random Glucose 127 H Calcium 8.9 Phosphorus Magnesium Total Bilirubin 0.6 AST 14 L ALT 7 L Alkaline Phosphatase 62 Creatine Kinase 39 Troponin I < 0.02 Total Protein 6.9 Albumin 3.3 L TSH 0.86 Urine Color Urine Appearance Urine pH Ur Specific [place] Urine Protein Urine Glucose (UA) Urine Ketones Urine Blood Urine Nitrite Urine Bilirubin Urine Urobilinogen Ur Leukocyte Esterase Urine WBC (Auto) Urine RBC (Auto) Urine Bacteria Urine Mucus 09/05/17 09/06/17 09/06/17 20:09 07:45 07:45 WBC 5.2 RBC 3.91 Hgb 11.7 Hct 34.6 MCV 88.6 MCH 29.8 MCHC 33.7 RDW 13.4 Plt Count 250 MPV 7.7 Absolute Neuts (auto) Neutrophils % Lymphocytes % Monocytes % Eosinophils % Basophils % Nucleated RBC % PT with INR INR Sodium 142 Potassium 3.7 Chloride 108 H Carbon Dioxide 28 Anion Gap 6 L BUN 12 Creatinine 0.6 Creat Clearance w eGFR > 60 Random Glucose 86 Calcium 8.4 L Phosphorus 2.5 Magnesium 2.0 Total Bilirubin AST ALT Alkaline Phosphatase Creatine Kinase Troponin I Total Protein Albumin TSH Urine Color Yellow Urine Appearance Slcloudy Urine pH 6.0 Ur Specific [place] 1.017 Urine Protein Negative Urine Glucose (UA) Negative Urine Ketones Trace H Urine Blood 1+ H Urine Nitrite Positive Urine Bilirubin Negative Urine Urobilinogen Negative Ur Leukocyte Esterase 2+ H Urine WBC (Auto) 27 Urine RBC (Auto) 5 Urine Bacteria Rare Urine Mucus Rare IMAGING: - CXR: No acute chest pathology - Head CT: No evidence of acute intracranial hemorrhage, edema, midline shift, mass effect, or skull fracture. No CT evidence of acute territorial infarction. 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 - EKG: NORMAL SINUS RHYTHM, NORMAL ECG - ECHO: EF 60-65%, LV and RV systolic function is normal, Mild MR, Mild , Mild Pulmonic valve regurgitation, No pericardial effusion HOSPITAL COURSE: Date of Admission:09/05/17 Date of Discharge: 09/07/17 Prehospital course as per Dr. Michael Myers 87 y/o female with PMH parkinson's, dementia, hyperthyroidism, and falls, presents after a syncopal episode. As per daughter at bedside, this occurred around 4PM as she was sitting in armchair. She was to be moved to wheelchair to go outside, when she was syncopized into armchair. Denies prior syncopal episodes. No trauma to head. Denies incontinence, tongue biting, tremors, posit ictal confusion. Patient was unresponsive for 2 minutes, when she spontanously returned to her baseline. Minimally responsive at baseline. Ambulates with assistance in wheelchair. Was last able to walk with walker 1 year ago. Denies fevers, chills, shortness of breath, chest pain, palpitations, nausea, vomiting , diarrhea, [place] stools, hematochezia, hematuria, dysuria, urinary frequency. ER course was notable for Rocephin, CXR, EKG, CT head, UA, urine cultures Hospital course Patient was admitted for a Syncopal episode and found to have an Asymptomatic bacteruria. Neurology was consulted. Orthostatic's revealed Sitting BP 118/59 and Standing BP 100/51. Imaging was negative. Patient was advised to maintain adequate hydration and to avoid sudden postural changes. She continued her home dose Parkinson medications. She received one dose of Rocephin in the ED and remained without urinary sx's throughout her hospital stay. Patient was discharged and started on Cefuroxime 250 mg BID for 5 days. Patient was to follow up with her neurologist outpatient for follow up. Minutes to complete discharge: 39 Discharge Summary Reason For Visit: URINARY TRACT INFECTION SYNCOPE Condition: Stable - Instructions Diet, Activity, Other Instructions: You presented to the hospital after you passed out when getting up from a wheel chair. Your work up came back negative. No fractures were seen on imaging. Please follow fall precautions. Keep yourself hydrated. Avoid sudden changes in position. 24 hour assist and supervision. Resume your home medications as prior to admission. Please take all medications as prescribed. You are started on new medication for urine infection, Cefuroxime 250 mg twice daily for 5 days. Your final urine tests are pending and can take upto 24-48 hours. You can have your doctor follow up on the results to see if antibiotics will need to be changed. You will be notified if concerns Please follow up with your primary care physician in one week. please work with physical therapy at home to strengthen your muscles Please make sure she has a daily bowel movement and you can use laxative as needed , senna prescription was sent to the pharmacy , take one tab at bed time as needed for constipation If your symptoms worsen or if you experience fevers, chest pain or shortness breath, fevers, chills, changes in mental status, urinary symptoms, pain or anything concerning, please return to the ED. Referrals: Vern Hogan MD [Primary Care Provider] - 1 Week Disposition: VNS/HOME HEALTH CARE - Home Medications Comprehensive Discharge Medication List: Ambulatory Orders Carbidopa/Levodopa [Sinemet Cr 50-200 Tablet] 1 each PO Q6H 05/14/11 Multivitamins [Multivit ([facility] Formulary)] 1 tab PO DAILY 10/06/15 Quetiapine Fumarate [Seroquel -] 50 mg PO AM 09/06/17 Cefuroxime Axetil [Cefuroxime] 250 mg PO BID #10 tablet 09/07/17 Sennosides [Senna -] 1 tab PO HS 15 Days #15 tablet 09/07/17 This patient is new to me today: No Emergency Visit: Yes ED Registration Date: 09/05/17 Care time: The patient presented to the Emergency Department on the above date and was hospitalized for further evaluation of their emergent condition. Critical Care patient: No - Discharge Referral Referred to [facility] Med P.C[facility] No
== END 2017-09-07 15:48 | disposition home health service (06) ==
LOC: JER 17:21 → JERBED 21:13 → J4W 09-06 20:23
PROVIDERS: ADMIT Internal Medicine; ATTEND Hospitalist
PROC: 3E03329 Introduction of Other Anti-infective into Peripheral Vein, Percutaneous Approach (ICD-10-PCS; principal; 2017-09-05)
PROC: 3E0337Z Introduction of Electrolytic and Water Balance Substance into Peripheral Vein, Percutaneous Approach (ICD-10-PCS; 2017-09-05)
DX: N39.0 Urinary tract infection, site not specified (principal); R82.71 Bacteriuria; G30.9 Alzheimer's disease, unspecified; F02.80 Dementia in other diseases classified elsewhere, unspecified severity, without behavioral disturbance, psychotic disturbance, mood disturbance, and anxiety; G20 Parkinson's disease; D64.9 Anemia, unspecified; K59.00 Constipation, unspecified; E05.90 Thyrotoxicosis, unspecified without thyrotoxic crisis or storm
CPT/HCPCS: 36415; 70450-TC; 71045-TC-FY; 80048; 80053; 81003; 81015; 82550; 83735; 84100; 84443; 84484; 85025; 85027; 85610; 87086; 87186; 93005; 93010; 93306-TC; 93880-TC; 96361; 96365; 97116-GP; 97161-GP; 99285-25; G0378; J1644; J7030